=== PATIENT | male | born 1975 | race Caucasian/White ===

== ENCOUNTER 2022-05-02 14:01 | Emergency (ER) | payer OTHER ==
[2022-05-02 14:13] VITALS: BP 140/88; PULSE 65; RESP 16; TEMP 98.8; BMI 26.6
[2022-05-02 15:11] LABS: HEMATOCRIT 39.9 % (35.4-49); HEMOGLOBIN 14.3 G/dL (11.7-16.9); MCH 32.7 pg (25.7-33.7); MCHC 35.7 g/dl (32.0-35.9); MEAN CELL VOLUME 91.4 fl (80-96); MEAN PLT VOLUME 7.4 fl (7.5-11.1); PLATELET COUNT 238.4 10^3/uL (134-434); RBC 4.36 10^6/uL (4.00-5.60)
[2022-05-02 15:15] LABS: ALBUMIN 4.4 g/dl (3.4-5.0); BILIRUBIN,TOTAL 1.7 mg/dl (0.2-1); CALCIUM 9.4 mg/dl (8.5-10); CREATININE 1.2 mg/dl (0.55-1.3); TOT PROT 7.5 g/dl (6.4-8.2)
== END 2022-05-02 15:48 | disposition home or self-care (01) ==
LOC: FER 14:01
DX: M79.645 Pain in left finger(s) (principal)
CPT/HCPCS: 36415; 80053; 85027; 93971; 99284-25